=== PATIENT | male | born 1985 | race Hispanic/Latino ===

== ENCOUNTER 2016-09-19 12:18 | Emergency (ER) | payer SELFPAY ==
[2016-09-19] MEDS ORDERED: Ketorolac Tromethamine 60 MG/2 ML VIAL ONE (13:46)
== END 2016-09-19 13:54 | disposition home or self-care (01) ==
LOC: NAV ERS 12:18
DX: M43.6 Torticollis (principal)
CPT/HCPCS: 96372; J1885

== ENCOUNTER 2016-09-27 14:11 | Emergency (ER) | payer SELFPAY ==
--- NOTE | 2016-09-27 15:30 | CT ---
CERVICAL SPINE CT WITHOUT CONTRAST: Date: 09/27/16 HISTORY: Patient was seen 8 days ago for right neck pain. Patient was treated with Tramadol and ibuprofen. No trauma, but patient saw chiropractor a few days ago. Patient has pain, radiating down right arm to right forearm. COMPARISON: 02/26/10. TECHNIQUE: Cervical spine CT is performed without IV or intrathecal contrast. Reformatted images are submitted for interpretation. FINDINGS: No prevertebral soft tissue swelling. No epidural hematoma. Visualized soft tissue neck structures, upper mediastinum, and lung apices are unremarkable. Varying degrees of central canal stenosis and foraminal narrowing on the basis of degenerative carrington e. Limited evaluation by technique. No high grade central canal stenosis or high grade foraminal gaby rowing. There is slight reversal of cervical lordosis centered at the C5-C6 level. Alignment is similar to t he prior examination. Current study is not tailored to assess for ligamentous injury. Vertebral body heights are maintained. There are no fractures. There is appropriate alignment of the lateral regino s of C1 and C2, as well as the interarticular facets. Odontoid process is intact. IMPRESSION: 1. No fracture. 2. No high grade central canal stenosis or high grade neural foraminal narrowing. Limited evaluatio n by technique. Nonemergent cervical spine MRI can be performed as an outpatient. POS: ANGELI
== END 2016-09-27 15:35 | disposition home or self-care (01) ==
LOC: NAV ERS 14:11
DX: M54.2 Cervicalgia (principal); Z79.899 Other long term (current) drug therapy
CPT/HCPCS: 72125

== ENCOUNTER 2016-10-07 09:47 | Emergency (ER) | payer SELFPAY | END 2016-10-07 10:22 | disposition home or self-care (01) | LOC: NAV ERS 09:47 | DX: M54.2 Cervicalgia (principal) | CPT/HCPCS: 99283 ==

== ENCOUNTER 2019-03-30 15:27 | Emergency (ER) | payer SELFPAY ==
[2019-03-30] MEDS ORDERED: Sodium Chloride 0.9% 500 ML ONE (15:47)
[2019-03-30] MEDS ORDERED: Ketorolac Tromethamine 30 MG/ML VIAL ONE (15:47)
[2019-03-30 16:00] LABS: Bilirubin Moderate (Negative); Blood, Urine Large (Negative); Clarity Clear (Clear); Glucose, Urine (Dipstick) Negative (Negative); Leukocyte Negative (Negative); Nitrite Negative (Negative); Protein, Urine (Dipstick) 100 mg/dL (Neg-Trace)
[2019-03-30 16:06] LABS: RBC/HPF Greater than 50 HPF (0-3); Squamous Epithelial 0-3 HPF (0-3); WBC/HPF 0-3 HPF (0-3)
[2019-03-30 16:10] LABS: #Basophils 0.1 thou/uL (0.0-0.2); #Lymphocytes 1.2 thou/uL (1.20-3.40); #Monocytes 0.6 thou/uL (0.11-0.59); #Neutrophils 13.3 thou/uL (1.40-6.50); %Basophils 0.6 % (0.0-1.0); %Eosinophils 0.3 % (0.0-10.0); %Lymphocytes 7.6 % (21.0-51.0); %Monocytes 3.8 % (0.0-10.0); %Neutrophils 87.7 % (42.0-75.0); Hemoglobin 15.9 g/dL (14.0-18.0); Mean Corpuscular HGB CONC 32.5 g/dL (32.0-36.0); Mean Corpuscular Hemoglobin 28.8 pg (27.0-31.0); Mean Corpuscular Volume 88.5 fL (78.0-98.0); Mean Platelet Volume 7.1 fL (7.4-10.4); Platelet Count 262 thou/uL (130-400); RBC Distribution Width 12.2 % (11.5-14.5); Red Blood Cell (RBC) Count 5.52 mill/uL (4.70-6.10); White Blood Cell (WBC) Count 15.1 thou/uL (4.8-10.8)
[2019-03-30 16:20] LABS: Anion Gap 15 mmol/L (10-20); BUN (Urea Nitrogen) 7 mg/dL (8.9-20.6); Calc. Creatinine Clearance 0 mL/min (70-130); Calcium 9.8 mg/dL (7.8-10.44); Carbon Dioxide 26 mmol/L (22-29); Chloride 106 mmol/L (98-107); Estimated GFR-MDRD 66; Glucose 106 mg/dL (70-105); Potassium 3.8 mmol/L (3.5-5.1); Sodium 143 mmol/L (136-145)
--- NOTE | 2019-03-30 16:36 | CT ---
CT abdomen and pelvis noncontrast HISTORY: Left flank pain. FINDINGS: There is mild distention of the left renal collecting system and ureter to the level of the 0.2 cm calculus within the distal left ureter. The right renal collecting system and ureter are decompressed. There are tiny calcifications within calyces of each kidney, measuring up to 0.2 cm inf erior pole left kidney. Lack of contrast material evaluation for other abnormalities. Large exophytic cyst at the superior po le left kidney. No evidence of bowel obstruction. Prominent posterior disc bulge at the L4-5 level. IMPRESSION: Partial obstruction at a 2 mm distal left ureteral calculus. Additional nonobstructing bilateral renal calculi. Posterior disc bulge L4-5 level.
== END 2019-03-30 17:00 | disposition home or self-care (01) ==
LOC: NAV ERS 15:27
DX: N20.2 Calculus of kidney with calculus of ureter (principal); F17.210 Nicotine dependence, cigarettes, uncomplicated
CPT/HCPCS: 74176; 80048; 81003; 81015; 85025; 94760; 96361; 96374; J1885; J7050

== ENCOUNTER 2025-03-17 18:43 | Emergency (ER) | payer SELFPAY | END 2025-03-17 19:11 | disposition home or self-care (01) | LOC: NAV ERS 18:43 | DX: L70.0 Acne vulgaris (principal); F17.210 Nicotine dependence, cigarettes, uncomplicated | CPT/HCPCS: 99282 ==